=== PATIENT | male | born 1955 | race Caucasian/White ===

== ENCOUNTER 2018-01-03 00:04 | Emergency (ER) | payer BC, SELFPAY | END 2018-01-03 00:34 | disposition home or self-care (01) | LOC: SCSER 00:04 | DX: M54.5 Low back pain (principal); G89.29 Other chronic pain; F32.9 Major depressive disorder, single episode, unspecified; Z87.891 Personal history of nicotine dependence; Z79.899 Other long term (current) drug therapy | CPT/HCPCS: 96372 ==

== ENCOUNTER 2021-06-18 10:28 | Outpatient (CLI) | payer MEDICARE, MEDICAID | END 2021-06-18 10:29 | disposition home or self-care (01) | LOC: SCSMRI 10:28 | PROVIDERS: ATTEND Neurological Surgery | DX: M47.26 Other spondylosis with radiculopathy, lumbar region (principal); M51.16 Intervertebral disc disorders with radiculopathy, lumbar region; I71.4 Abdominal aortic aneurysm, without rupture | CPT/HCPCS: 72120; 72148 ==

== ENCOUNTER 2021-11-13 09:48 | Outpatient (CLI) | payer MEDICARE, MEDICAID ==
[2021-11-13 10:57] LABS: Hemoglobin 13.7 g/dL (13.5-17.5); Mean Corpuscular HGB CONC 34.2 g/dL (32.0-36.0); Mean Corpuscular Hemoglobin 32.3 pg (27.0-33.0); Mean Corpuscular Volume 94.6 fl (81.2-95.1); Mean Platelet Volume 9.2 fl (7.4-10.4); Platelet Count 198 10x3/uL (150-450); RBC Distribution Width 12.3 % (11.5-14.5); Red Blood Cell (RBC) Count 4.24 10x6/uL (4.32-5.72); White Blood Cell (WBC) Count 5.6 10x3/uL (3.5-10.5)
[2021-11-13 11:08] LABS: Anion Gap 12 mmol/L (10-20); BUN (Urea Nitrogen) 13 mg/dL (8.4-25.7); Calc. Creatinine Clearance 0 mL/min (70-130); Calcium 8.7 mg/dL (7.8-10.44); Carbon Dioxide 25 mmol/L (23-31); Chloride 106 mmol/L (98-107); Glucose 106 mg/dL (80-115); Sodium 139 mmol/L (136-145)
[2021-11-13 19:03] LABS: SARS-CoV-2 PCR by NAA Not Detected (NotDetected)
== END 2021-11-13 09:49 | disposition home or self-care (01) ==
LOC: LABBT 09:48
PROVIDERS: ATTEND Urology
DX: Z01.812 Encounter for preprocedural laboratory examination (principal); N50.811 Right testicular pain; Z20.822 Contact with and (suspected) exposure to COVID-19
CPT/HCPCS: 80048; 85027; U0003; U0005

== ENCOUNTER 2021-11-18 11:21 | Day surgery (SDC) | payer MEDICARE, MEDICAID ==
[2021-11-12 11:55] VITALS: BMI 32.8
[2021-11-18] MEDS ORDERED: Propofol 1,000 MG/100 ML VIAL IV ONE (12:16)
[2021-11-18] MEDS ORDERED: Fentanyl 250 MCG/5 ML VIAL ONE (12:16)
[2021-11-18] MEDS ORDERED: Lidocaine 1% MPF 2 ML VIAL ONE (12:21)
[2021-11-18] MEDS ORDERED: Bupivacaine 0.25% HCL 30 ML VIAL ONE (12:33)
[2021-11-18] MEDS ORDERED: ceFAZolin Sodium (SDC) 2 GM/100 ML BAG ONE (12:41)
[2021-11-18] MEDS ORDERED: Lidocaine 1% PF 5 ML VIAL ONE (12:57)
[2021-11-18] MEDS ORDERED: PROPOFOL 200 MG/20 ML VIAL ONE (12:57)
[2021-11-18] MEDS ORDERED: Dexamethasone 20 MG/5 ML VIAL ONE (12:57)
[2021-11-18] MEDS ORDERED: Ondansetron PF 4 MG/2 ML Vial ONE (12:57)
== END 2021-11-18 14:20 | disposition home or self-care (01) ==
LOC: SDC 11:21
PROVIDERS: ATTEND Urology
PROC: 0VT90ZZ Resection of Right Testis, Open Approach (ICD-10-PCS; principal; 2021-11-18)
DX: N50.0 Atrophy of testis (principal); N52.31 Erectile dysfunction following radical prostatectomy; N39.3 Stress incontinence (female) (male); K21.9 Gastro-esophageal reflux disease without esophagitis; M79.7 Fibromyalgia; M19.90 Unspecified osteoarthritis, unspecified site; G62.9 Polyneuropathy, unspecified; E66.9 Obesity, unspecified; Z68.32 Body mass index [BMI] 32.0-32.9, adult; Z85.46 Personal history of malignant neoplasm of prostate; Z79.899 Other long term (current) drug therapy; Z88.6 Allergy status to analgesic agent; Z88.8 Allergy status to other drugs, medicaments and biological substances; Z87.891 Personal history of nicotine dependence
CPT/HCPCS: 88305; 93005; 93010; J0690; J1100; J2405; J2704; J3010; S0020

== ENCOUNTER 2023-01-25 10:24 | Outpatient (CLI) | payer OTHER, MEDICAID | END 2023-01-25 10:25 | disposition home or self-care (01) | LOC: BICRAD 10:24 | PROVIDERS: ATTEND Family Medicine | DX: M25.551 Pain in right hip (principal); M16.11 Unilateral primary osteoarthritis, right hip ==